=== PATIENT | male | born 1990 | race Caucasian/White ===

== ENCOUNTER → 2019-03-26 | Emergency (ER) | payer SELFPAY ==
[~2019-03-26] VITALS: Ht 188 cm; Wt 101.2 kg
[~2019-03-26] MED LIST: LORA1TAB PO; LORAZEPAM 2 MG INJ IM ONE; MAG-19 PO; OMEP20CA9 PO
[2019-03-26 13:54] VITALS: BP 154/74; PULSE 94; RESP 18; Ht 188 cm; Wt 101.2 kg
--- NOTE | 2019-03-26 14:01 | EN ---
Date/Time of Note Date/Time of Note DATE: 03/26/19 TIME: 13:58 ER Progress Note [id number]-old male presents with sensation of shortness of breath, bilateral hand numbness and spasms starting today. Denies previous history of anxiety. Symptoms consistent with hyperventilation syndrome. Will need medication in ED 2. ANGLE MENON MD Mar 26, 2019 14:01
--- NOTE | 2019-03-26 19:25 | ERD ---
ER Documentation Chief Complaint Chief Complaint APPEARS ANXIOUS , HYPERVENTILATION HAND NUMBNESS HPI History of Present Illness: 29-year-old male who reports a past medical history of GERD coming in today due to complaints of increased heart rate, shortness of breath, feeling hands and feet tingling.. Patient reports episode lasted over 15 to 20 minutes. Denies stress or previous anxiety. Patient reports working until 4:30 PM yesterday and then hanging out with his friends last night in which he smoked weed and drink alcohol until approximately midnight. Patient reports going to work today and leaving work and having the symptoms present. Denies chest pain. Denies any other associated symptoms. At home pharmacological/nonpharmacological treatment for symptoms: Denies Denies social concerns; Denies recent foreign travel ROS All systems reviewed and are negative except as per history of present illness. Medications Home Meds Active Scripts Lorazepam* (Lorazepam*) 1 Mg Tablet, 1 MG PO DAILY PRN for ANXIETY MDD 2MG, #10 TAB Take 1 lorazepam in the event that you experience anxiety-like symptoms. Max 2 pills/day. Prov:MOE OG NP 03/26/19 Omeprazole* (Prilosec*) 20 Mg Capsule.dr, 20 MG PO DAILY, #30 CAP Prov:CHAN LAU NP 03/02/16 Magaldrate/Simethicone* (Mylanta*) 355 Ml Susp, 30 ML PO QID PRN for GASTROINTESTINAL UPSET, #1 BOTTLE Prov:CHAN LAU NP 03/02/16 Reported Medications [none] No Conflict Check 12/16/09 Allergies Allergies: Coded Allergies: No Known Allergies (Verified Allergy, Mild, 12/16/09) PMhx/Soc Medical and Surgical Hx: pt denies Medical Hx, pt denies Surgical Hx History of Surgery: No Anesthesia Reaction: No Hx Neurological Disorder: No Hx Respiratory Disorders: No Hx Cardiac Disorders: No Hx Psychiatric Problems: No Hx Miscellaneous Medical Probl: No Hx Alcohol Use: Yes (occasional) Hx Substance Use: Yes (marijuana occasional) Hx Tobacco Use: No Smoking Status: Never smoker FmHx Family History: diabetes; No coronary disease Physical Exam Vitals Vital Signs Date Temp Pulse Resp B/P (MAP) Pulse Ox O2 O2 Flow FiO2 Time Delivery Rate 03/26/19 98.4 94 18 154/74 98 13:54 (100) Physical Exam Const: No acute distress, afebrile, anxious Head: Atraumatic Eyes: Normal Conjunctiva ENT: Normal External Ears, Nose and Mouth. Neck: Full range of motion. No meningismus. Resp: Clear to auscultation bilaterally Cardio: Regular rate and rhythm, no murmurs Abd: Soft, non tender, non distended. No guarding, no masses, no rigidity Skin: No petechiae or rashes Back: No midline or flank tenderness Ext: No cyanosis, or edema Neur: Awake and alert x3, speaking in clear sentences, no focal deficits or facial asymmetry Psych: Normal Mood and Affect Results 24 hrs Laboratory Tests Test 03/26/19 15:14 Urine Opiates Screen Negative Urine Barbiturates Negative Urine Amphetamines Screen Negative Urine Benzodiazepines Screen Negative Urine Cocaine Screen Negative Urine Cannabinoids Positive Current Medications Medications Dose Sig/Gary Start Time Status Last (Trade) Ordered Route PRN Stop Time Admin Dose Reason Admin Lorazepam 1 mg ONCE ONCE 03/26/19 DC 03/26/19 (Ativan) IM 15:30 15:16 03/26/19 15:31 Procedures/MDM ED COURSE: ED course includes a thorough examination and history. The patient was stable throughout ED course. I kept the patient and/or family informed of laboratory and diagnostic imaging results throughout the ED course. LABS: Urine drug screen negative MEDICATIONS GIVEN IN ER: Ativan Patient tolerated medication well with no adverse reactions. Patient reported decrease in symptoms. DIAGNOSTIC IMAGING: EKG: Read by Dr. HANLEY, ED attending physician. EKG shows normal sinus rhythm with sinus arrhythmia at a rate of 64 No arrhythmias, acute ST elevations or T wave changes were noted. PROCEDURES: None. MEDICAL DECISION MAKING: Low suspicion for life-threatening medical emergency. Low suspicion for cardiopulmonary emergency. Low suspicion for metabolic emergency. Otherwise healthy patient presenting with constellation of symptoms likely representing hyperventilation syndrome related to anxiety attack as characterized by history, physical exam findings. Patient reassessment @ 1620: Symptoms longer present. Patient hemodynamically stable. No respiratory distress, otherwise relatively well appearing and nontoxic. Disposition given. Patient educated on diagnoses, prescriptions, follow-up care, return precautions. Strict return precautions given for worsening condition; questions answered discharge. Patient verbalizes understanding of discharge instructions. PRESCRIPTIONS FOR HOME: Ativan DISPOSITION: DISCHARGE At this time, patient is stable for discharge and outpatient management. I have instructed the patient to follow-up with his/her primary care physician in 1-2 days. I have discussed with the patient the possibility of needing to see a specialist for further workup and imaging studies if symptoms persist. I have instructed the patient to promptly return to the ER for any new or worsening symptoms including increased pain, fever, nausea, vomiting, weakness or LOC. The patient and/or family expressed understanding of and agreement with this plan. All questions were answered. Home care instructions were provided. DISCLAIMER: Inadvertent spelling and grammatical errors are likely due to EHR/dictation software use and do not reflect on the overall quality of patient care. Also, please note that the electronic time recorded on this note does not necessarily reflect the actual time of the patient encounter. Departure Diagnosis: Primary Impression: Anxiety attack Condition: Stable Patient Instructions: Anxiety Reaction, Panic Attack Referrals: [facility] YOU HAVE RECEIVED A MEDICAL SCREENING EXAM AND THE RESULTS INDICATE THAT YOU DO NOT HAVE A CONDITION THAT REQUIRES URGENT TREATMENT IN THE EMERGENCY DEPARTMENT. FURTHER EVALUATION AND TREATMENT OF YOUR CONDITION CAN WAIT UNTIL YOU ARE SEEN IN YOUR DOCTORS OFFICE WITHIN THE NEXT 1-2 DAYS. IT IS YOUR RESPONSIBILITY TO MAKE AN APPOINTMENT FOR FOLOW-UP CARE. IF YOU HAVE A PRIMARY DOCTOR --you should call your primary doctor and schedule an appointment IF YOU DO NOT HAVE A PRIMARY DOCTOR YOU CAN CALL OUR PHYSICIAN REFERRAL HOTLINE AT IF YOU CAN NOT AFFORD TO SEE A PHYSICIAN YOU CAN CHOSE FROM THE FOLLOWING [facility] [address] [facility]. [facility] [address] [facility] [place] [address] [facility]. [facility] [address] [facility]. [facility] [address] [facility]. [facility]. [address] [facility]. [facility] YOU HAVE RECEIVED A MEDICAL SCREENING EXAM AND THE RESULTS INDICATE THAT YOU DO NOT HAVE A CONDITION THAT REQUIRES URGENT TREATMENT IN THE EMERGENCY DEPARTMENT. FURTHER EVALUATION AND TREATMENT OF YOUR CONDITION CAN WAIT UNTIL YOU ARE SEEN IN YOUR DOCTORS OFFICE WITHIN THE NEXT 1-2 DAYS. IT IS YOUR RESPONSIBILITY TO MAKE AN APPOINTMENT FOR FOLOW-UP CARE. IF YOU HAVE A PRIMARY DOCTOR --you should call your primary doctor and schedule and appointment IF YOU DO NOT HAVE A PRIMARY DOCTOR YOU CAN CALL OUR PHYSICIAN REFERRAL HOTLINE AT . IF YOU CAN NOT AFFORD TO SEE A PHYSICIAN YOU CAN CHOSE FROM THE FOLLOWING [facility] INSTITUTIONS: [facility] [address] [place] [address] [facility] [address] [place] [address] [facility] [address] [place] [address] Additional Instructions: Thank you very much for allowing us to participate in your care. Your health and safety is our top priority at [facility]. It is important to read all discharge instructions and education provided in your discharge packet. Call your primary care doctor TOMORROW for an appointment during the next 2-4 days and bring all the information and medications prescribed. Have prescriptions filled and follow precisely the directions on the label. If the symptoms get worse and your provider is unavailable, return to the Emergency Department immediately. MOE OG NP Mar 26, 2019 19:25
== END | disposition home or self-care (01) ==
LOC: FTE 13:49
DX: F41.9 Anxiety disorder, unspecified (principal); R06.02 Shortness of breath
CPT/HCPCS: 80307; 93005; 96372; 99284; J2060